=== PATIENT | female | born 1990 | race Caucasian/White ===

== ENCOUNTER 2022-03-31 00:05 | Emergency (ER) | payer MEDICAID ==
[~2022-03-31] VITALS: Ht 160 cm; Wt 68.0 kg
[2022-03-31 00:20] VITALS: BP 134/85
--- NOTE | 2022-03-31 00:20 | NUR ---
to bed ambulatory
--- NOTE | 2022-03-31 00:21 | NUR ---
PT HAS BEEN PRODUCTIVE COUGH FOR ABOUT 2 WEEKS. PT IS ALERT AND ORIENTED X 4. ROOM, AIR AND AMBULATORY. WAITIG FOR DR TO EXAMINE.
[2022-03-31] MEDS ORDERED: METH4TAB1 PO (00:38)
[2022-03-31] MEDS ORDERED: BENZ200C4 PO (00:38)
[2022-03-31 00:50] VITALS: BP 134/85
--- NOTE | 2022-03-31 00:53 | NUR ---
Patient discharged with v/s stable. Written and verbal after care instructions given and explained. Patient verbalized understanding. Ambulatory with steady gait. All questions addressed prior to discharge. Advised to follow up with PMD. pt left with his belonings
== END 2022-03-31 00:53 | disposition home or self-care (01) ==
LOC: MED 00:05
DX: J45.909 Unspecified asthma, uncomplicated (principal); Z79.899 Other long term (current) drug therapy
CPT/HCPCS: 99283

== ENCOUNTER 2022-04-21 11:11 | Emergency (ER) | payer MEDICAID ==
[~2022-04-21] VITALS: Ht 160 cm; Wt 74.4 kg
[~2022-04-21 11:11] MED LIST: BENZ200C4 PO; METH4TAB1 PO
[2022-04-21 11:26] VITALS: BP 135/74
[2022-04-21] MEDS ORDERED: BENZ-300 PO (13:22)
[2022-04-21] MEDS ORDERED: [UNRECOGNIZED DRUG - CODE] PO (13:22)
[2022-04-21] MEDS ORDERED: ALBU0.0912 IH (13:22)
[2022-04-21 13:40] VITALS: BP 135/74
--- NOTE | 2022-04-21 13:40 | NUR ---
Patient discharged with v/s stable. Written and verbal after care instructions given and explained. Patient alert, oriented and verbalized understanding of instructions. Ambulatory with steady gait. All questions addressed prior to discharge. ID band removed. Patient advised to follow up with PMD. Rx of PROVENTIL, CAPACOL SORE THROAT LOZENGE, TUSSIN DM SYRUP given. Patient educated on indication of medication including possible reaction and side effects. Opportunity to ask questions provided and answered.
== END 2022-04-21 13:40 | disposition home or self-care (01) ==
LOC: MED 11:11
DX: J06.9 Acute upper respiratory infection, unspecified (principal); R03.0 Elevated blood-pressure reading, without diagnosis of hypertension; F17.210 Nicotine dependence, cigarettes, uncomplicated; F12.90 Cannabis use, unspecified, uncomplicated
CPT/HCPCS: 99283